=== PATIENT | male | born 1980 | race Hispanic/Latino ===

== ENCOUNTER 2017-08-14 21:00 | Emergency (ER) | payer SELFPAY ==
--- NOTE | 2017-08-14 22:30 | RAD ---
RADIOGRAPH CHEST 1 VIEW: 08/14/17 HISTORY: 36-year-old male with cough. FINDINGS: There are no air space densities, pulmonary edema, pneumothorax, or cardiomegaly. The lateral costop hrenic angles are sharp. IMPRESSION: No acute cardiopulmonary findings. arash [] POS: [facility]
[2017-08-14] MEDS ORDERED: Ketorolac Tromethamine 30 MG/ML VIAL ONE (22:51)
[2017-08-14] MEDS ORDERED: Ondansetron ODT 8 MG TAB ONE (22:53)
== END 2017-08-14 23:24 | disposition home or self-care (01) ==
LOC: EDBD 21:00 → ERS 21:00
DX: J11.1 Influenza due to unidentified influenza virus with other respiratory manifestations (principal)
CPT/HCPCS: 71010; 96372; J1885

== ENCOUNTER 2018-07-07 08:20 | Emergency (ER) | payer SELFPAY ==
[2018-07-07] MEDS ORDERED: Ketorolac Tromethamine 60 MG/2 ML VIAL ONE (08:41)
--- NOTE | 2018-07-07 08:57 | RAD ---
RIGHT ANKLE 3 VIEWS: Date: 07/07/18 HISTORY: 37-year-old male with history of right ankle pain, without recent injury. FINDINGS/IMPRESSION: No fracture, dislocation, or other significant acute osseous abnormality. POS: [facility]
== END 2018-07-07 09:12 | disposition home or self-care (01) ==
LOC: ERS 08:20
DX: M25.571 Pain in right ankle and joints of right foot (principal)
CPT/HCPCS: 96372; J1885

== ENCOUNTER 2021-06-10 12:55 | Emergency (ER) | payer SELFPAY ==
[2021-06-10] MEDS ORDERED: Ketorolac Tromethamine 30 MG/ML VIAL ONE (15:07)
[2021-06-10] MEDS ORDERED: Cyclobenzaprine 10 MG TAB ONE (15:07)
== END 2021-06-10 15:22 | disposition home or self-care (01) ==
LOC: ERS 12:55
DX: M54.2 Cervicalgia (principal); R51.9 Headache, unspecified
CPT/HCPCS: 70450; 72125; 93005; 96372; J1885

== ENCOUNTER 2022-05-26 11:03 | Emergency (ER) | payer OTHER ==
[2022-05-26 12:31] LABS: Bilirubin Negative (Negative); Blood, Urine Negative (Negative); Clarity Clear (Clear); Glucose, Urine (Dipstick) 500 mg/dL (Negative); Ketone, Urine Negative (Negative); Leukocyte Negative Leu/uL (Negative); Nitrite Negative (Negative); Protein, Urine (Dipstick) Negative (Neg-Trace); Specific Gravity, Urine 1.021 (1.002-1.036); Urobilinogen Normal mg/dL (Less than 2)
[2022-05-26] MEDS ORDERED: Ketorolac Tromethamine 30 MG/ML VIAL ONE (13:40)
[2022-05-26 20:10] LABS: Chlam.trachomatis by PCR,Urine Not Detected (NotDetected)
== END 2022-05-26 14:40 | disposition home or self-care (01) ==
LOC: ERS 11:03
DX: R30.0 Dysuria (principal); M79.604 Pain in right leg; M79.605 Pain in left leg; R73.9 Hyperglycemia, unspecified
CPT/HCPCS: 36416; 81003; 87491; 87591; 96372; 99284; J1885

== ENCOUNTER 2023-02-18 09:45 | Emergency (ER) | payer OTHER ==
[2023-02-18] MEDS ORDERED: Metoclopramide HCl 10 MG/2 ML VIAL ONE (11:11)
[2023-02-18] MEDS ORDERED: diphenhydrAMINE 50 MG/ML VIAL ONE (11:11)
[2023-02-18] MEDS ORDERED: Acetaminophen 500 MG TAB ONE (11:11)
[2023-02-18 11:31] LABS: #Eosinphils 0.1 thou/uL (0.0-0.7); #Monocytes 0.4 thou/uL (0.11-0.59); #Neutrophils 6.1 thou/uL (1.40-6.50); %Basophils 0.1 % (0.0-1.0); %Eosinophils 1.8 % (0.0-10.0); %Lymphocytes 12.6 % (21.0-51.0); %Monocytes 5.3 % (0.0-10.0); %Neutrophils 79.8 % (42.0-75.0); Hemoglobin 14.2 g/dL (14.0-18.0); Mean Corpuscular HGB CONC 34.2 g/dL (32.0-36.0); Mean Corpuscular Hemoglobin 30.1 pg (27.0-31.0); Mean Corpuscular Volume 87.9 fl (78.0-98.0); Mean Platelet Volume 9.2 fL (7.4-10.4); Platelet Count 165 10x3/uL (130-400); RBC Distribution Width 12.9 % (11.5-14.5); Red Blood Cell (RBC) Count 4.72 mill/uL (4.70-6.10); White Blood Cell (WBC) Count 7.7 10x3/uL (4.8-10.8)
[2023-02-18 11:55] LABS: ALT (SGPT) 21 U/L (8-55); AST (SGOT) 22 U/L (5-34); Albumin 4.5 g/dL (3.5-5.0); Alkaline Phosphatase 63 U/L (40-110); Anion Gap 14 mmol/L (10-20); BUN (Urea Nitrogen) 12 mg/dL (8.9-20.6); Bilirubin, Total 0.7 mg/dL (0.2-1.2); Calc. Creatinine Clearance 0 mL/min (70-130); Carbon Dioxide 24 mmol/L (22-29); Chloride 104 mmol/L (98-107); Estimated GFR 111; Globulin 3.6 g/dL (2.4-3.5); Glucose 100 mg/dL (70-105); Potassium 3.9 mmol/L (3.5-5.1); Protein, Total 8.1 g/dL (6.0-8.3); Sodium 138 mmol/L (136-145)
[2023-02-18 13:02] LABS: Bacteria/HPF None Seen HPF (None Seen); Bilirubin Negative (Negative); Blood, Urine Negative (Negative); CAUTI Indications for Culture Fever or rigors; Clarity Clear (Clear); Glucose, Urine (Dipstick) Normal (Negative); Ketone, Urine Negative (Negative); Leukocyte Negative Leu/uL (Negative); Nitrite Negative (Negative); Protein, Urine (Dipstick) Negative (Neg-Trace); RBC/HPF 0-3 HPF (0-3); Specific Gravity, Urine 1.019 (1.002-1.036); Squamous Epithelial None Seen HPF (0-3); Urobilinogen Normal mg/dL (Less than 2); WBC/HPF None Seen HPF (0-3); pH, Urine 7.5 (5.0-9.0)
[2023-02-18 13:07] LABS: Urine Culture Reflex No No
[2023-02-18 13:59] LABS: SARS-CoV-2 NAA Rapid Test Not Detected (NotDetected)
== END 2023-02-18 14:00 | disposition home or self-care (01) ==
LOC: ERS 09:45
DX: J32.9 Chronic sinusitis, unspecified (principal); R51.9 Headache, unspecified; E11.9 Type 2 diabetes mellitus without complications; I10 Essential (primary) hypertension; Z20.822 Contact with and (suspected) exposure to COVID-19
CPT/HCPCS: 36415; 70450; 71045; 72125; 80053; 81001; 83605; 85025; 87040; 96365; 96375; J1200; J2765

== ENCOUNTER 2023-10-03 02:01 | Emergency (ER) | payer OTHER | END 2023-10-03 03:15 | disposition home or self-care (01) | LOC: ERS 02:01 | DX: Z02.89 Encounter for other administrative examinations (principal); E11.9 Type 2 diabetes mellitus without complications; I10 Essential (primary) hypertension | CPT/HCPCS: 99282 ==